=== PATIENT | male | born 1985 | race Caucasian/White ===

== ENCOUNTER → 2018-08-23 | Outpatient (CLI) | payer BC ==
[~2018-08-23] MED LIST: ASPIRIN 81M81 MG/TA2 PO; EPA FISH OIL1000 MG PO; FORT1000TA PO; GOOD NEIGHBOR500 M6; GOOD NEIGHBOR500 M6 PO; LANTUS100 U/ML SQ; MULTIPLE VITAMI1 CAP PO; NORCO 325 MG-51 TAB PO; NORVASC 5MG5 MG/TAB PO; PRINIVIL20 MG PO; ZESTORETIC 25 M1 TAB PO; ZOCOR 10MG10 MG PO; ZOCOR 20MG20 MG PO
== END ==
LOC: COL.RAD 14:15
DX: E04.1 Nontoxic single thyroid nodule (principal)